=== PATIENT | male | born 1945 | race Caucasian/White ===

== ENCOUNTER 2017-07-06 17:09 | Inpatient (IN) | payer MEDICARE ==
[~2017-07-06] VITALS: Ht 190.5 cm; Wt 113.5 kg
[2017-07-06 17:19] VITALS: BP 133/72; PULSE 43; RESP 19; TEMP 98.6; O2SAT 96
--- NOTE | 2017-07-06 17:40 | PD ---
HPI Chief Complaint: Skin Problem Time Seen by Provider: 17:28 Travel History International Travel<30 days: No Contact w/Intl Traveler<30days: No Traveled to known affect area: No History of Present Illness HPI 72-year-old male presents with swelling to his right hand over the past couple of days. He states that he went to an urgent care and started antibiotics 2 days ago. He states it is not gotten better so he started a cut to his hand and has had significant drainage from there but there is still a lot of swelling and pain. He states the antibiotic was clindamycin and shows me the bottle. He denies any other concurrent complaints including fever. Pain is worse with movement. He denies other modifying factors. PFSH Past Medical History Medical History: Denies Significant Hx Past Surgical History Narrative Surgical hernia Social History Tobacco Use: No Allergies-Medications (Allergen,Severity, Reaction): Coded Allergies: No Known Allergies (Unverified , 07/06/17) Review of Systems Except as stated in HPI: all other systems reviewed are Neg Physical Exam Narrative GENERAL: 72-year-old male in no apparent distress SKIN: Focused skin assessment warm/dry. Patient has induration and erythema noted to the palmar aspect of his right hand just below his ring and middle finger, he has a small simple laceration in the inner web space between his first and second digits that is actively draining pus and was cultured HEAD: Atraumatic. Normocephalic. EYES: Pupils equal and round. No scleral icterus. No injection or drainage. ENT: No nasal bleeding or discharge. Mucous membranes pink and moist. NECK: Trachea midline. No JVD. CARDIOVASCULAR: Regular rate and rhythm. RESPIRATORY: No accessory muscle use. Clear to auscultation. Breath sounds equal bilaterally. GASTROINTESTINAL: Abdomen soft, non-tender, nondistended. MUSCULOSKELETAL: No obvious deformities. No clubbing. No cyanosis. Swelling to right hand noted, neurovascularly intact NEUROLOGICAL: Awake and alert. No obvious cranial nerve deficits. Motor grossly within normal limits. Normal speech. PSYCHIATRIC: Appropriate mood and affect; insight and judgment normal. Data Data Last Documented VS Vital Signs Date Time Temp Pulse Resp B/P (MAP) Pulse Ox O2 Delivery O2 Flow Rate FiO2 07/06/17 17:19 98.6 43 19 133/72 (92) 96 Orders Orders Complete Blood Count With Diff (07/06/17 17:28) Comprehensive Metabolic Panel (07/06/17 17:28) Prothrombin Time / Inr (Pt) (07/06/17 17:28) Act Partial Throm Time (Ptt) (07/06/17 17:28) Lactic Acid Sepsis Protocol (07/06/17 17:28) Wound Culture And Gram Stain (07/06/17 17:28) Ecg Monitoring (07/06/17 17:28) Iv Access Insert/Monitor (07/06/17 17:28) Oximetry (07/06/17 17:28) Hand, Complete (Bae1wfh) (07/06/17 ) Vancomycin Inj (Vancomycin Inj) (07/06/17 17:45) Mri Hand W&W/O Contrast (07/06/17 ) Vancomycin Consult Pharmacy (Vancomycin (07/06/17 18:30) Vancomycin Inj (Vancomycin Inj) (07/06/17 18:30) Piperacil-Tazo 4.5 Gm Premix (Zosyn 4.5 (07/06/17 18:30) Consult Hand Surgery (07/06/17 ) Admit To Inpatient (07/06/17 ) Vital Signs (Adult) Q4H (07/06/17 18:18) Activity Oob With Assistance (07/06/17 18:18) Diet Npo (07/06/17 Dinner) Sodium Chlor 0.9% 1000 Ml Inj (Ns 1000 M (07/06/17 19:00) Sodium Chloride 0.9% Flush (Ns Flush) (07/06/17 18:30) Sodium Chloride 0.9% Flush (Ns Flush) (07/06/17 21:00) Acetaminophen (Tylenol) (07/06/17 18:30) Metoclopramide Inj (Reglan Inj) (07/06/17 18:30) Basic Metabolic Panel (Bmp) (07/07/17 06:00) Complete Blood Count With Diff (07/07/17 06:00) Resp Oxygen Blu C Titrat 1-4 L (07/06/17 ) Pt Request For Service (07/06/17 18:18) Case Management Consult (07/06/17 18:18) Scd Bilateral/Knee High GARO.BID (07/06/17 18:18) Brock Bilateral/Knee High GARO.QSHIFT (07/06/17 18:18) Naloxone Inj (Narcan Inj) (07/06/17 18:30) Docusate Sodium-Senna (Estephania-Colace) (07/06/17 21:00) Magnesium Hydroxide Liq (Milk Of Magnesi (07/06/17 18:30) Sennosides (Senokot) (07/06/17 18:30) Bisacodyl Supp (Dulcolax Supp) (07/06/17 18:30) Lactulose Liq (Lactulose Liq) (07/06/17 18:30) Inpatient Certification (07/06/17 ) ^ Medication Reconciliation (07/06/17 18:21) Admit Order (Ed Use Only) (07/06/17 18:26) (Hub Use Only)Inp Phy Cons/Ref (07/06/17 ) Labs Laboratory Tests Test 07/06/17 17:35 07/06/17 17:40 White Blood Count 10.1 TH/MM3 Red Blood Count 5.41 MIL/MM3 Hemoglobin 16.2 GM/DL Hematocrit 47.3 % Mean Corpuscular Volume 87.4 FL Mean Corpuscular Hemoglobin 29.9 PG Mean Corpuscular Hemoglobin Concent 34.2 % Red Cell Distribution Width 15.0 % Platelet Count 222 TH/MM3 Mean Platelet Volume 9.0 FL Neutrophils (%) (Auto) 71.9 % Lymphocytes (%) (Auto) 13.9 % Monocytes (%) (Auto) 10.0 % Eosinophils (%) (Auto) 3.7 % Basophils (%) (Auto) 0.5 % Neutrophils # (Auto) 7.3 TH/MM3 Lymphocytes # (Auto) 1.4 TH/MM3 Monocytes # (Auto) 1.0 TH/MM3 Eosinophils # (Auto) 0.4 TH/MM3 Basophils # (Auto) 0.0 TH/MM3 CBC Comment DIFF FINAL Differential Comment Prothrombin Time 10.6 SEC Prothromb Time International Ratio 1.0 RATIO Activated Partial Thromboplast Time 29.2 SEC Blood Urea Nitrogen 14 MG/DL Creatinine 1.00 MG/DL Random Glucose 87 MG/DL Total Protein 7.7 GM/DL Albumin 3.6 GM/DL Calcium Level 8.8 MG/DL Alkaline Phosphatase 58 U/L Aspartate Amino Transf (AST/SGOT) 22 U/L Alanine Aminotransferase (ALT/SGPT) 29 U/L Total Bilirubin 1.6 MG/DL Sodium Level 140 MEQ/L Potassium Level 4.0 MEQ/L Chloride Level 105 MEQ/L Carbon Dioxide Level 25.5 MEQ/L Anion Gap 10 MEQ/L Estimat Glomerular Filtration Rate 73 ML/MIN Lactic Acid Level 0.9 mmol/L MDM Medical Decision Making Medical Screen Exam Complete: Yes Emergency Medical Condition: Yes Medical Record Reviewed: Yes (pmh confirmed) Interpretation(s) CBC & BMP Diagram 07/06/17 17:35 Total Protein 7.7, Albumin 3.6, Calcium Level 8.8, Alkaline Phosphatase 58, Aspartate Amino Transf (AST/SGOT) 22, Alanine Aminotransferase (ALT/SGPT) 29, Total Bilirubin 1.6 H Last 24 hours Impressions Hand X-Ray 07/06/17 0000 Signed Impressions: CONCLUSION: Mild degenerative changes. Otherwise unremarkable study for patient's age. Differential Diagnosis Abscess, cellulitis, foreign body Narrative Course We will check blood work, hand x-ray and discussed with hand surgeon as patient likely has deeper abscess patient agrees to send pictures to surgeon and further care here Physician Communication Physician Communication dr maldonado states to check mri uregntly and keep npo, admit to medicine ok dr avery agrees to admit Diagnosis Primary Impression: Infection of right hand Admitting Information Admitting Physician Requests: Admit Joy Rice MD July 06, 2017 17:40
[2017-07-06] MEDS ORDERED: VANCOMYCIN INJ 1,000 MG in SODIUM CHLOR 0.9% 250 ML INJ 250 ML IV ONE (17:45)
[2017-07-06 18:04] LABS: AUTOMATED NEUTROPHIL # 7.3 TH/MM3 (1.8-7.7); BASOPHIL % 0.5 % (0.0-2.0); EOSINOPHIL # 0.4 TH/MM3 (0-0.4); EOSINOPHIL % 3.7 % (0.0-4.0); HEMATOCRIT 47.3 % (39.0-51.0); HEMOGLOBIN 16.2 GM/DL (13.0-17.0); LYMPH % 13.9 % (9.0-44.0); LYMPHOCYTE # 1.4 TH/MM3 (1.0-4.8); MEAN CELL VOLUME 87.4 FL (80.0-100.0); MEAN CORPUSCULAR HEMOGLOBIN 29.9 PG (27.0-34.0); MEAN CORPUSCULAR HGB CONC 34.2 % (32.0-36.0); NEUT % 71.9 % (16.0-70.0); PLATELET COUNT 222 TH/MM3 (150-450); RED BLOOD COUNT 5.41 MIL/MM3 (4.50-5.90); WHITE BLOOD COUNT 10.1 TH/MM3 (4.0-11.0)
--- NOTE | 2017-07-06 18:19 | RADRPT ---
EXAM DATE: 07/06/2017 6:07 PM EDT AGE/SEX: 72 years / Male INDICATIONS: Swelling to anterior hand. CLINICAL DATA: This is the patient's initial encounter. Patient reports that signs and symptoms have been present for 1 day and indicates a pain score of 3/10. MEDICAL/SURGICAL HISTORY: None. None. COMPARISON: No prior [facility] exams available for comparison. FINDINGS: Bony structures are intact and in normal alignment. Osseous density is normal for patient's age. Ther e is some mild degenerative changes involving the DIP joints.. Soft tissues are unremarkable. No ra diopaque foreign bodies seen. CONCLUSION: Mild degenerative changes. Otherwise unremarkable study for patient's age. Electronically signed by: Jay Jay Soni MD 07/06/2017 6:18 PM EDT
[2017-07-06 18:22] LABS: PROTHROMBIN TIME - PATIENT 10.6 SEC (9.8-11.6)
[2017-07-06 18:26] LABS: ALBUMIN 3.6 GM/DL (3.4-5.0); ALT (GPT) 29 U/L (12-78); AST (GOT) 22 U/L (15-37); BICARBONATE 25.5 MEQ/L (21.0-32.0); BLOOD UREA NITROGEN 14 MG/DL (7-18); CALCIUM 8.8 MG/DL (8.5-10.1); CHLORIDE 105 MEQ/L (98-107); GLOMERULAR FILTRATION RATE 73 ML/MIN (>89); GLUCOSE,RANDOM 87 MG/DL (74-106); SODIUM (NA) 140 MEQ/L (136-145)
[2017-07-06 18:29] LABS: ALKALINE PHOSPHATASE 58 U/L (45-117); TOTAL BILIRUBIN ADULT 1.6 MG/DL (0.2-1.0); TOTAL PROTEIN 7.7 GM/DL (6.4-8.2)
[2017-07-06] MEDS ORDERED: VANCOMYCIN INJ 1,000 MG in SODIUM CHLOR 0.9% 250 ML INJ 250 ML IV SCH (18:30)
[2017-07-06] MEDS ORDERED: METOCLOPRAMIDE HCL 10 MG/2 ML VIAL IV PUSH PRN (18:30)
[2017-07-06] MEDS ORDERED: MAGNESIUM HYDROXIDE SUSP 30 ML CUP PO PRN (18:30)
[2017-07-06] MEDS ORDERED: LACTULOSE SYRUP 20 GM/30 ML CUP PO PRN (18:30)
[2017-07-06] MEDS ORDERED: SODIUM CHLORIDE 0.9% FLUSH 10 ML FLUSH IV FLUSH PRN (18:30)
[2017-07-06] MEDS ORDERED: SENNOSIDES 8.6 MG TAB PO PRN (18:30)
[2017-07-06] MEDS ORDERED: Vancomycin Consult Pharmacy 1 EA OTHER SCH (18:30)
[2017-07-06] MEDS ORDERED: NALOXONE HCL 0.4 MG/ML AMP IV PUSH PRN (18:30)
[2017-07-06] MEDS ORDERED: BISACODYL 10 MG SUPP RECTAL PRN (18:30)
[2017-07-06] MEDS ORDERED: ACETAMINOPHEN 325 MG TAB PO PRN (18:30)
--- NOTE | 2017-07-06 19:30 | HHI.HP ---
[facility] Service [facility] Primary Care Physician No Primary Care Physician Admission Diagnosis hand infection Diagnoses: Travel History International Travel<30 Days: No Contact w/Intl Traveler <30 Da: No Traveled to Known Affected Are: No History of Present Illness 32-year-old male with no significant past medical history, last seen by a primary care physician approximately 5 years ago, presents the emergency department for the evaluation of swelling and pain in his right hand. The patient reports that last Wednesday he was working with [employer] when he suffered an abrasion to the area. He notes since that time he has had increased pain and swelling in the pad of his right hand near the third and fourth digits. He sought treatment from an urgent care on Wednesday where he was given clindamycin which he was compliant with without any improvement in his symptoms. This morning. He lanced the area between the third and fourth fingers and expressed copious quantities of foul-smelling purulent material. The patient denies any fever/chills. No chest pain. No shortness of breath. No abdominal pain. No nausea/vomiting/diarrhea. No lateralizing signs/ symptoms. Review of Systems Except as stated in HPI: all other systems reviewed are Neg Past Family Social History Past Medical History None Last seen by PCP approximately 5 years ago Past Surgical History Hernia repair 3 Allergies: Coded Allergies: No Known Allergies (Unverified , 07/06/17) Family History Negative for CAD/DM Social History Denies alcohol, tobacco and illicit drugs Physical Exam Vital Signs Vital Signs Date Time Temp Pulse Resp B/P (MAP) Pulse Ox O2 Delivery O2 Flow Rate FiO2 07/06/17 17:19 98.6 43 19 133/72 (92) 96 Physical Exam GENERAL: male sitting up in bed SKIN: Right hand with significant erythema and edema. Pain with movement. Small laceration between third and fourth digits. HEAD: Atraumatic. Normocephalic. No temporal or scalp tenderness. EYES: Pupils equal round and reactive. Extraocular motions intact. No scleral icterus. No injection or drainage. ENT: Nose without bleeding, purulent drainage or septal hematoma. Throat without erythema, tonsillar hypertrophy or exudate. Uvula midline. Airway patent. NECK: Trachea midline. No JVD or lymphadenopathy. Supple, nontender, no meningeal signs. CARDIOVASCULAR: Regular rate and rhythm without murmurs, gallops, or rubs. RESPIRATORY: Clear to auscultation. Breath sounds equal bilaterally. No wheezes , rales, or rhonchi. GASTROINTESTINAL: Abdomen soft, non-tender, nondistended. No hepato-splenomegaly , or palpable masses. No guarding. MUSCULOSKELETAL: Extremities without clubbing, cyanosis, or edema. No joint tenderness, effusion, or edema noted. No calf tenderness. NEUROLOGICAL: Awake and alert. Cranial nerves II through XII intact. Motor and sensory grossly within normal limits. Normal speech. Laboratory Laboratory Tests Test 07/06/17 17:35 07/06/17 17:40 White Blood Count 10.1 Red Blood Count 5.41 Hemoglobin 16.2 Hematocrit 47.3 Mean Corpuscular Volume 87.4 Mean Corpuscular Hemoglobin 29.9 Mean Corpuscular Hemoglobin Concent 34.2 Red Cell Distribution Width 15.0 Platelet Count 222 Mean Platelet Volume 9.0 Neutrophils (%) (Auto) 71.9 Lymphocytes (%) (Auto) 13.9 Monocytes (%) (Auto) 10.0 Eosinophils (%) (Auto) 3.7 Basophils (%) (Auto) 0.5 Neutrophils # (Auto) 7.3 Lymphocytes # (Auto) 1.4 Monocytes # (Auto) 1.0 Eosinophils # (Auto) 0.4 Basophils # (Auto) 0.0 CBC Comment DIFF FINAL Differential Comment Prothrombin Time 10.6 Prothromb Time International Ratio 1.0 Activated Partial Thromboplast Time 29.2 Blood Urea Nitrogen 14 Creatinine 1.00 Random Glucose 87 Total Protein 7.7 Albumin 3.6 Calcium Level 8.8 Alkaline Phosphatase 58 Aspartate Amino Transf (AST/SGOT) 22 Alanine Aminotransferase (ALT/SGPT) 29 Total Bilirubin 1.6 Sodium Level 140 Potassium Level 4.0 Chloride Level 105 Carbon Dioxide Level 25.5 Anion Gap 10 Estimat Glomerular Filtration Rate 73 Lactic Acid Level 0.9 Date/Time Source Procedure Growth Status 07/06/17 17:35 Wound Hand Gram Stain - Final Resulted 07/06/17 17:35 Wound Hand Wound Culture Pending Resulted Result Diagram: 07/06/17 1735 07/06/17 1735 Caprini VTE Risk Assessment Caprini VTE Risk Assessment: Mod/High Risk (score >= 2) Caprini Risk Assessment Model Point Value = 1 Point Value = 2 Point Value = 3 Point Value = 5 Age 41-60 Minor surgery BMI > 25 kg/m2 Swollen legs Varicose veins or History of unexplained or recurrent spontaneous Oral contraceptives or hormone replacement Sepsis (< 1 month) Serious lung disease, including pneumonia (< 1 month) Abnormal pulmonary function Acute myocardial infarction Congestive heart failure (< 1 month) History of inflammatory bowel disease Medical patient at bed rest Age 61-74 Arthroscopic surgery Major open surgery (> 45 min) Laparoscopic surgery (> 45 min) Malignancy Confined to bed (> 72 hours) Immobilizing plaster cast Central venous access Age >= 75 History of VTE Family history of VTE Factor V Leiden Prothrombin [id number] Lupus anticoagulant Anticardiolipin antibodies Elevated serum homocysteine Heparin-induced thrombocytopenia Other congenital or acquired thrombophilia Stroke (< 1 month) Elective arthroplasty Hip, pelvis, or leg fracture Acute spinal cord injury (< 1 month) Prophylaxis Regimen Total Risk Factor Score Risk Level Prophylaxis Regimen 0-1 Low Early ambulation 2 Moderate Order ONE of the following: *Sequential Compression Device (SCD) *Heparin 5000 units SQ BID 3-4 Higher Order ONE of the following medications: *Heparin 5000 units SQ TID *Enoxaparin/Lovenox 40 mg SQ daily (WT < 150 kg, CrCl > 30 mL/min) *Enoxaparin/Lovenox 30 mg SQ daily (WT < 150 kg, CrCl > 10-29 mL/min) *Enoxaparin/Lovenox 30 mg SQ BID (WT < 150 kg, CrCl > 30 mL/min) AND/OR *Sequential Compression Device (SCD) 5 or more Highest Order ONE of the following medications: *Heparin 5000 units SQ TID (Preferred with Epidurals) *Enoxaparin/Lovenox 40 mg SQ daily (WT < 150 kg, CrCl > 30 mL/min) *Enoxaparin/Lovenox 30 mg SQ daily (WT < 150 kg, CrCl > 10-29 mL/min) *Enoxaparin/Lovenox 30 mg SQ BID (WT < 150 kg, CrCl > 30 mL/min) AND *Sequential Compression Device (SCD) Assessment and Plan Assessment and Plan Assessment/plan: 1. Right hand cellulitis/failed outpatient treatment Status post clindamycin 3 days without improvement Concern for tenosynovitis Vancomycin/Zosyn MRI hand pending Hand surgery consulted, appreciate recommendations FEN NPO after MN Electrolytes: monitor and replete prn Holding pharmacologic anticoagulation for possible operative intervention Physician Certification 2 Midnight Certification Type: Admission for Inpatient Services Order for Inpatient Services The services are ordered in accordance with Medicare regulations or non- Medicare payer requirements, as applicable. In the case of services not specified as inpatient-only, they are appropriately provided as inpatient services in accordance with the 2-midnight benchmark. Estimated LOS (days): 2 2 days is the estimated time the patient will need to remain in the hospital, assuming treatment plan goals are met and no additional complications. Post-Hospital Plan: Not yet determined Nuris Parish MD July 06, 2017 19:30
[2017-07-06] MEDS ORDERED: GADODIAMIDE PF 287 MG/ML 5 ML VIAL (for RAD MRI) IVCONTRAST ONE (19:57)
--- NOTE | 2017-07-06 20:29 | RADRPT ---
EXAM DATE: 07/06/2017 8:12 PM EDT AGE/SEX: 72 years / Male INDICATIONS: Abscess. Right hand, MCPJ of third and fourth digit, pain due to cut from [employer]. CLINICAL DATA: This is the patient's initial encounter. Patient reports that signs and symptoms have been present for 1 week and indicates a pain score of 4/10. MEDICAL/SURGICAL HISTORY: . Inguinal hernia repair. COMPARISON: [facility] [place], HAND RIGHT COMPLETE ([id number]), 07/06/2017. . TECHNIQUE: Multiplanar, multisequence MRI examination was performed without contrast and after the i ntravenous administration of 20 ml Omniscan (gadodiamide) contrast as a single exam dose. FINDINGS: There is marked soft tissue swelling base of the third and CP joint extending towards the fourth and second digits. This does show minimal abnormal enhancement. There is no marrow changes to suggest ost eomyelitis. I don't see evidence for a deep space abscess. There is enhancement and inflammatory wilde ges extends through and around the flexor tendon sheaths crossing the MCP joint.. CONCLUSION: 1. Inflammatory changes as above without deep space abscess. 2. There is no os myelitis. 3. Careful follow-up would be of benefit to exclude such. Electronically signed by: Pablo Fiore MD 07/06/2017 8:28 PM EDT
[2017-07-06] MEDS: PIPERACIL-TAZO 4.5 GM PREMIX 100 ML IV SCH (20:50)
[2017-07-06] MEDS: SODIUM CHLOR 0.9% 1000 ML INJ 1,000 ML IV SCH (20:50)
[2017-07-06] MEDS: SODIUM CHLORIDE 0.9% FLUSH 10 ML FLUSH IV FLUSH SCH (20:51)
[2017-07-06] MEDS: DOCUSATE SODIUM 50 MG/SENNA 8.6 MG TAB PO SCH (20:51)
[2017-07-07] VITALS: BP 120/67; PULSE 72; RESP 16; TEMP 98.1; O2SAT 94
[2017-07-07 00:27] VITALS: O2SAT 96
[2017-07-07] MEDS ORDERED: VANCOMYCIN INJ 1,250 MG in SODIUM CHLOR 0.9% 250 ML INJ 250 ML IV SCH (03:00)
[2017-07-07 04:00] VITALS: BP 108/55; PULSE 64; RESP 18; TEMP 98.8; O2SAT 91
[2017-07-07] MEDS: PIPERACIL-TAZO 4.5 GM PREMIX 100 ML IV SCH ×2 (04:09→12:18)
[2017-07-07] MEDS: SODIUM CHLOR 0.9% 1000 ML INJ 1,000 ML IV SCH (04:09)
[2017-07-07 08:00] VITALS: BP 128/63; PULSE 52; RESP 18; TEMP 97.4; O2SAT 94
[2017-07-07 08:26] LABS: AUTOMATED NEUTROPHIL # 4.6 TH/MM3 (1.8-7.7); BASOPHIL # 0.1 TH/MM3 (0-0.2); BASOPHIL % 0.8 % (0.0-2.0); EOSINOPHIL # 0.5 TH/MM3 (0-0.4); EOSINOPHIL % 7.6 % (0.0-4.0); HEMATOCRIT 43.3 % (39.0-51.0); HEMOGLOBIN 14.8 GM/DL (13.0-17.0); LYMPH % 14.3 % (9.0-44.0); MEAN CELL VOLUME 88.1 FL (80.0-100.0); MEAN CORPUSCULAR HEMOGLOBIN 30.2 PG (27.0-34.0); MEAN CORPUSCULAR HGB CONC 34.3 % (32.0-36.0); MEAN PLATELET VOLUME 9.2 FL (7.0-11.0); MONO % 9.1 % (0.0-8.0); MONOCYTE # 0.6 TH/MM3 (0-0.9); NEUT % 68.2 % (16.0-70.0); PLATELET COUNT 224 TH/MM3 (150-450); RED BLOOD COUNT 4.91 MIL/MM3 (4.50-5.90); RED CELL DISTRIBUTION WIDTH 14.7 % (11.6-17.2); WHITE BLOOD COUNT 6.7 TH/MM3 (4.0-11.0)
[2017-07-07 08:56] LABS: BICARBONATE 24.6 MEQ/L (21.0-32.0); CALCIUM 8.4 MG/DL (8.5-10.1); CREATININE 0.81 MG/DL (0.60-1.30)
[2017-07-07] MEDS: DOCUSATE SODIUM 50 MG/SENNA 8.6 MG TAB PO SCH (09:00)
[2017-07-07] MEDS: SODIUM CHLORIDE 0.9% FLUSH 10 ML FLUSH IV FLUSH SCH (09:00)
[2017-07-07 09:43] VITALS: O2SAT 94
--- NOTE | 2017-07-07 10:30 | HHI.PR ---
Subjective Remarks Patient reports his hand is improving today. He is hoping to return to home today. Surgical consult pending. Objective Vital Signs Date Time Temp Pulse Resp B/P (MAP) Pulse Ox O2 Delivery O2 Flow Rate FiO2 07/07/17 09:43 94 21 07/07/17 08:00 97.4 52 18 128/63 (84) 94 07/07/17 04:00 98.8 64 18 108/55 (72) 91 07/07/17 00:27 96 07/07/17 00:00 98.1 72 16 120/67 (84) 94 07/06/17 17:19 98.6 43 19 133/72 (92) 96 I/O 07/06/17 07/06/17 07/06/17 07/07/17 07/07/17 07/07/17 07:00 15:00 23:00 07:00 15:00 23:00 # Voids 0 Result Diagram: 07/07/17 0652 07/07/17 0652 Objective Remarks GENERAL: NAD, A&Ox3 HEAD: Normocephalic. NECK: Supple, trachea midline. No lymphadenopathy. EYES: No scleral icterus. No injection or drainage. CARDIOVASCULAR: Regular rate and rhythm without murmurs, gallops, or rubs. RESPIRATORY: Breath sounds equal bilaterally. No accessory muscle use. GASTROINTESTINAL: Abdomen soft, non-tender, nondistended. MUSCULOSKELETAL: No cyanosis, or edema. SKIN: Warm and dry. 1 cm laceration with erythema at digits base of third and fourth fingers at right hand. NEURO: No focal neurological deficitis. A/P Problem List: (1) Infection of right hand ICD Code: L08.9 - Local infection of the skin and subcutaneous tissue, unspecified Status: Acute Assessment and Plan 72-year-old male admitted secondary to right hand cellulitis with outpatient treatment failure. Patient lacerated his own hand in an attempt to drain, prior to the hospitalization. Right hand cellulitis Clindamycin outpatient treatment failure Continue vancomycin Improving in the last 12 hours. Hand surgeon evaluation pending Follow cultures DVT prophylaxis Edgar Huerta MD July 07, 2017 10:30
[2017-07-07 11:11] VITALS: BP 114/67; PULSE 45; RESP 18; TEMP 98.5; O2SAT 95
[2017-07-07] MEDS ORDERED: MUPIROCIN 2% OINT 22 GM TUBE ONE (14:39)
[2017-07-07] MEDS ORDERED: BUPIVACAINE HCL PF 0.5% 30 ML VIAL ONE (14:39)
[2017-07-07] MEDS ORDERED: LIDOCAINE HCL 1% 50 ML VIAL ONE (14:40)
[2017-07-07] MEDS ORDERED: NEOMYCIN/POLYMYXIN 1 ML G.U. IRRIGANT ONE ×2 (14:41→15:09)
[2017-07-07] MEDS ORDERED: BACT800T5 PO (16:18)
[2017-07-07] MEDS ORDERED: DOXY100C PO (16:18)
[2017-07-07] MEDS ORDERED: LACTTAB8 PO (16:18)
--- NOTE | 2017-07-07 16:23 | HHI.DS ---
Discharge Summary Admission Date July 06, 2017 at 18:28 Discharge Date: July 07, 2017 Admitting Diagnosis hand infection (1) Infection of right hand ICD Code: L08.9 - Local infection of the skin and subcutaneous tissue, unspecified Status: Acute Procedures Incision and drainage of right hand infection Brief History - From Admission 32-year-old male with no significant past medical history, last seen by a primary care physician approximately 5 years ago, presents the emergency department for the evaluation of swelling and pain in his right hand. The patient reports that last Wednesday he was working with [employer] when he suffered an abrasion to the area. He notes since that time he has had increased pain and swelling in the pad of his right hand near the third and fourth digits. He sought treatment from an urgent care on Wednesday where he was given clindamycin which he was compliant with without any improvement in his symptoms. This morning. He lanced the area between the third and fourth fingers and expressed copious quantities of foul-smelling purulent material. The patient denies any fever/chills. No chest pain. No shortness of breath. No abdominal pain. No nausea/vomiting/diarrhea. No lateralizing signs/ symptoms. CBC/BMP: 07/07/17 0652 07/07/17 0652 Significant Findings Laboratory Tests Test 07/06/17 17:35 07/06/17 17:40 07/07/17 06:52 Neutrophils (%) (Auto) 71.9 % (16.0-70.0) Monocytes (%) (Auto) 10.0 % (0.0-8.0) 9.1 % (0.0-8.0) Monocytes # (Auto) 1.0 TH/MM3 (0-0.9) Total Bilirubin 1.6 MG/DL (0.2-1.0) Estimat Glomerular Filtration Rate 73 ML/MIN (>89) Eosinophils (%) (Auto) 7.6 % (0.0-4.0) Eosinophils # (Auto) 0.5 TH/MM3 (0-0.4) Calcium Level 8.4 MG/DL (8.5-10.1) Chloride Level 108 MEQ/L (98-107) Hospital Course Mr. Patterson is a 72 year old male. He was admitted due to a right hand infection. This was treated with clindamycin as an outpatient. Infection has progressed despite clindamycin. Patient did attempted I&D at his home prior to coming to the hospital he came in because infection is worsening. He says overnight on vancomycin and with his attempted I&D he has had improvement in the last 12 hours since seen this morning. He is seen by hand surgeon today and further I&D is done at bedside. The patient is insistent on discharging today. For coverage of infection which failed clindamycin the patient is placed on doxycycline and Bactrim. He will be on these for 10 days. He is recommended to follow-up with hand surgeon within the next 5 days. Probiotics are also provided. Patient is cleared for discharge to home. Cultures will be monitored and patient will be notified of resistance is found to the antibiotics are being prescribed at discharge. Pt Condition on Discharge: Stable Discharge Disposition: Discharge Home Discharge Time: <= 30 minutes Discharge Instructions DIET: Follow Instructions for: As Tolerated, No Restrictions Activities you can perform: Regular-No Restrictions Follow up Referrals: Hand Surgery - 2-3 Days with Watson Barton MD PCP Follow-up - 2 Weeks New Medications: Doxycycline Hyclate (Doxycycline Hyclate) 100 Mg Cap 100 MG PO BID for Infection, #20 CAP 0 Refills Lactobacillus Acidophilus (Lactobacillus Acidophilus) 1 Billion Cell Tab 1 TAB PO TIDAC for Nutritional Supplement, #30 TAB 0 Refills Sulfamethoxazole-Trimethoprim (Bactrim DS) 800-160 Mg Tab 1 TAB PO BID for Infection, #20 TAB 0 Refills Edgar Rodriguez MD July 07, 2017 16:23
--- NOTE | 2017-07-07 19:23 | MB ---
cc: Watson Barton MD, Srikanth MD DATE: 07/07/2017 REASON FOR CONSULTATION: Right hand infection. HISTORY OF PRESENT ILLNESS: The patient is a 72-year-old, right hand dominant male who presented to the ED with complaints of pain, swelling, redness involving the right hand for the past 5-6 days. The patient states he was working on a [place] boat and accidentally scratched the palm of his hand. The patient initially noticed some swelling and redness. He had worsening of pain and swelling and redness and was later seen at urgent care. He was put on p.o. antibiotics. The patient continued to have worsening symptoms. He decided to drain the site of infection and made a small incision to drain the purulent material from the right hand yesterday. The patient drained purulent material from the region and presented to the ED with worsening symptoms. Denies any fever. Denies any chills. Denies any tingling, numbness. The patient states with IV antibiotics for the past 1 day he has considerable improvement in the pain symptoms. He also states he is able to make a better fist. Denies any tingling, numbness at the present time. PAST MEDICAL HISTORY: Noted Non-significant. PAST SURGICAL HISTORY: Hernia repair. PHYSICAL EXAMINATION: GENERAL: The patient is alert, oriented x3. VITAL SIGNS: He is afebrile. Examination of the right hand reveals a wound in the webspace between the middle and the ring fingers with some minimal drainage from the region, which is serosanguineous. There is surrounding maceration of the skin. There is also swelling and erythema around the base of the middle finger at the A1 milton region and over the proximal phalanx region. Mild tenderness on deep palpation noted over the A1 milton region of the middle finger and over the A2 milton region. No tenderness noted along the volar aspect of the middle phalanx or distal phalanx region. No tenderness noted in the palm region. He also has swelling on the dorsal aspect of the middle finger proximal phalanx and the MP joint region. This was compared to yesterday's picture from the ER and the swelling has come down considerably. He is able to make a full fist. He has full extension of the fingers. He has intact sensation distally. LABORATORY DATA: Laboratory work was reviewed. He has a white count of 6.7 and a neutrophil shift of 68%. IMAGING STUDIES: The patient had x-rays of the right hand, which were negative for radiopaque foreign body. He had an MRI scan of the right hand with and without contrast that showed evidence of extensive inflammatory tissue over the base of the middle finger around the A1-A2 milton region. No evidence of deep space abscess noted. There is also evidence of inflammatory around the flexor tendon of the middle finger. ASSESSMENT: A 72-year-old male with a right hand infection, questionable for flexor tenosynovitis. PLAN: I had a discussion with the patient regarding operative exploration and drainage of flexor tendon sheath. I do not see any clinical evidence of infection of the flexor tendon sheath, as he is able to make a full fist and he has full extension of the finger with no tenderness along the volar aspect of the middle phalanx or in the palm. He does have a localized infection in the webspace between the middle and the ring fingers, which has been drained by the patient himself. The patient is not keen on surgery, as he states the symptoms have come down considerably since start of IV antibiotics. He was also informed to continue the IV antibiotics, but he insists that he wants to go home with p.o. antibiotics as he has other issues to be taken care of at home. The patient was informed about possibility of flexor sheath infection. He understands as well. He would like to go home on p.o. antibiotics. The patient will be discharged home on p.o. doxycycline and Bactrim. I had a discussion with the hospitalist regarding the same. The macerated skin was excised. The wound was thoroughly washed with hydrogen peroxide and normal saline. Dry dressing was applied. The patient is advised regarding daily dressing changes. He is also advised to be compliant with the antibiotics. I will see him in my office in 2-3 days' time. He has been advised to make an appointment earlier if there is any worsening symptoms for possible drainage of flexor tendon sheath, right middle finger. Watson Barton MD SE/ , 06:58 PM , 07:23 PM [facility]
[2017-07-08] MEDS ORDERED: PHARMACY ORDERED LAB ONE (14:45)
== END 2017-07-07 16:42 | disposition home or self-care (01) | DRG 603 ==
LOC: NEPE 17:09 → NEDA 18:28 → N05A 20:15
PROVIDERS: ADMIT Hospitalist; ATTEND Hospitalist
PROC: 0X9J0ZZ Drainage of Right Hand, Open Approach (ICD-10-PCS; principal; 2017-07-07)
DX: L03.113 Cellulitis of right upper limb (principal)
CPT/HCPCS: 73130; 73220; 80048; 80053; 83605; 85025; 85610; 85730; 87070; 87077; 87186; 96365; A9579; J2543; J3370; J7030; J7050